=== PATIENT | female | born 1970 | race Caucasian/White ===

== ENCOUNTER 2022-03-27 20:06 | Observation (INO) | payer OTHER, SELFPAY ==
[2022-03-22 18:04] LABS: Hematocrit 28.4 % (37-47); Hemoglobin 8.4 g/dL (12.0-15.0); Mean Corp Hgb Conc 29.6 g/dL (32-36); Mean Corpuscular Hgb 20.7 pg (27.0-32.0); Mean Corpuscular Volume 70.1 fL (81-99); Mean Platelet Vol. 8.9 fl (6.2-12.0); Platelet Count 468 K/mm3 (150-450); RBC Distribution Width CV 16.3 % (11.6-14.6); RBC Distribution Width SD 41.3 fl (35.1-43.9); Red Blood Count 4.05 M/mm3 (4.2-5.4); White Blood Count 6.2 K/mm3 (4.4-11.0)
[2022-03-22 18:11] LABS: Magnesium 2.1 mg/dL (1.6-2.6)
[2022-03-27 19:40] VITALS: BP 177/79; PULSE 97; RESP 18; TEMP 37.2; O2SAT 100
[2022-03-27 19:46] VITALS: BMI 25.9
--- NOTE | 2022-03-27 20:26 | PCM.HP.BLA ---
History and Physical Date of Admission: 03/27/22 Chief complaint: Chronic anemia History present illness: 51-year-old G2, P2 arrives for preoperative blood transfusion. Denies headache, visual changes, chest pain, shortness of breath, nausea vomiting, weakness, dizziness. Obstetrical history: G1: 40-week primary G2: 39-week repeat section Past medical history: None Medications: None Past surgical history: section x2, tubal ligation Social history: Denies smoking, alcohol use, drug use Family history: Denies history DVT or PE Allergies: No known drug allergies Review of systems: Besides above pertinent positives a full review of systems was performed and found to be negative Physical exam: Vital signs: Blood pressure 177/79 pulse 97 respiratory rate 18 temperature 99 Fahrenheit SPO2 100% on room air General: Normal-appearing no acute distress none HEENT: Normocephalic atraumatic no cervical of adenopathy Cardiac/respiratory: No use of accessory muscles, nonlabored breathing Abdomen: Soft, nontender, nondistended Extremities: No peripheral edema normal peripheral pulses Psych: Normal affect normal demeanor nonpressured speech Assessment plan: 44-year-old arrives with chronic anemia asymptomatic but for major surgery tomorrow, plan for hysterectomy. Patient for 1 unit packed red blood cells transfusion, risk benefits alternatives discussed patient states understanding and wished to proceed. All questions were answered and consent was signed. N.p.o. after midnight.
[2022-03-27] MEDS: Lactated Ringers 1,000 ML 100 ML IV (22:05)
[2022-03-27] MEDS: 0.9% Saline Lock 10 ML Syringe IV (22:05)
[2022-03-27 22:33] VITALS: BP 178/70; PULSE 90; RESP 16; TEMP 37.2; O2SAT 98
[2022-03-27 23:08] VITALS: BP 152/64; PULSE 79; RESP 16; TEMP 37.2; O2SAT 99
[2022-03-28] VITALS (12 sets, daily range): BP systolic 136–174; BP diastolic 57–75; PULSE 66–80; RESP 16–24; TEMP 36.7–37.5; O2SAT 98–100; BMI 25.7
--- NOTE | 2022-03-28 | HYST_PTH ---
PATIENT: MARTITA VIZCARRA LOC: [facility] U#:[id number] AGE/SX: 51/F ROOM: [facility] RE03/27/[address]: Dr. Gustavo Hensley MD : 1970 BED: 1 DIS: 03/28/2022 SPEC #: [id number] RECD: 03/28/22 13:26 STATUS: ROSALBA REIrene #: [id number] BRITNI: 03/28/22 00:[address]: Gustavo Hensley DEPT: SURGICAL PATHOLOGY RECD BY: Ky Sy ENTERED: 03/28/22 13:26 SP TYPE: HYSTERECT OTHR DR: No Primary Care Phys Tissues: Uterus, NOS Procedures: Surgery Specimen Level V HEADER OPERATION: ERAS, robotic assist total lap hysterectomy, BSO, cysto PRE-OP DIAGNOSIS: Chronic anemia secondary to menorrhagia TISSUE SUBMITTED: Uterus, cervix, bilateral fallopian tubes MICROSCOPIC DIAGNOSIS Uterus, cervix, bilateral fallopian tubes, hysterectomy and bilateral salpingectomy: Cervix ? mild chronic cystic cervicitis. Endometrium ? secretory endometrium. Myometrium ? intramural leiomyomas (largest measuring 4 cm in greatest dimension). See comment. One fallopian tubes with luminal adenomyosis involving epithelium. Second fallopian tube - no pathologic diagnosis. SJ:rg 03/29/2022 COMMENT Largest leiomyoma shows focal central area of infarction. MICROSCOPIC DESCRIPTION Slides are reviewed. GROSS DESCRIPTION Received in fixative is one container labeled with the patient's name and designated uterus. The specimen consists of a uterus with attached cervix measuring 13 x 10 x 5 cm and weighing 202 gm. The ectocervix is oval in contour. The endocervical canal measures 3.8 cm in length and is grossly unremarkable. The triangular endometrial cavity measures 4.8 x 3 cm. The velvety, reddish-tuttle endometrium measures up to 0.2 cm in thickness. The myometrium measures 2 cm in average thickness and is distorted by multiple spherical rubbery nodules resembling leiomyomas that range in size from 1.2 to 4 cm in greatest dimension. Two fallopian tubes are present free in the containing. One fallopian tube measures 5 cm in length and 0.5 cm in average diameter. The other fallopian tube measures 6 cm in length and 1 cm in average diameter and contains a Filshie-type clip that is intact. [employer] sections are submitted as follows: 1 - anterior cervix, 2 - posterior cervix, 3 & 4 - anterior uterine wall, 5 & 6 - posterior uterine wall, 7 & 8 - largest myometrial mass, 9 - smaller myometrial masses, 10 - fallopian tube without Filshie clip, 11 - fallopian tube with Filshie clip. Note, the largest myometrial mass contains central softening and greenish-tuttle discoloration. / AM:yasmany 03/28/2022 TC:1 CPT: 73802
[2022-03-28 04:42] LABS: Absolute Lymphocyte Count 1.39 X10^3/uL (0.83-4.51); Absolute Neutrophil Count 2.7 X10^3/uL (2.0-7.7); Basophil# 0.03 X10^3/uL; Basophil% 0.6 % (0-1); Eosinophil# 0.07 X10^3/uL; Eosinophils% 1.5 % (0-5); Lymphocyte # 1.39 X10^3/ul (0.83-4.51); Lymphocyte % 29.7 % (19-41); Mean Corpuscular Hgb 22.2 pg (27.0-32.0); Mean Corpuscular Volume 71.4 fL (81-99); Mean Platelet Vol. 8.4 fl (6.2-12.0); Monocyte# 0.45 X10^3/uL; Monocyte% 9.6 % (0-10); NRBC Flagged by Analyzer 0 % (0-5); Neutrophil # 2.74 X10^3/uL (2.7-7.7); Neutrophil % 58.6 % (47-70); Platelet Count 452 K/mm3 (150-450); RBC Distribution Width CV 18.2 % (11.6-14.6); RBC Distribution Width SD 46.2 fl (35.1-43.9); Red Blood Count 4.06 M/mm3 (4.2-5.4); White Blood Count 4.7 K/mm3 (4.4-11.0)
[2022-03-28 04:57] LABS: Prothrombin Time (Protime)PT. 12.6 SECONDS (11.7-14.9)
[2022-03-28] MEDS: Gabapentin 600 MG Tablet PO (08:54)
[2022-03-28] MEDS: Acetaminophen 500 MG Tablet 1000 MG PO ×2 (08:54→17:20)
--- NOTE | 2022-03-28 09:25 | NURSING ---
Pt taken off floor to AC at this time, family to OR waiting room.
--- NOTE | 2022-03-28 09:41 | PCM.PN.OB ---
Subjective Subjective No overnight complaints. Remains asymptomatic. Denies chest pain, shortness of breath, dizziness, weakness Objective Data Objective Data Vital Signs: Vital Signs Temp Pulse Resp BP Pulse Ox O2 Del Method 98.6 F 80 18 165/70 H 99 Room Air 03/28/22 08:49 03/28/22 08:49 03/28/22 08:49 03/28/22 08:49 03/28/22 08:49 03/28/22 08:49 Oxygen Delivery Method Room Air Weight: 131 lb 15.993 oz Body Mass Index (BMI) 25.7 Intake & Output: Intake and Output for Last 24 Hours 03/26/22 03/27/22 03/28/22 23:59 23:59 23:59 Intake Total 80 / 80 502 / 502 Balance 80 502 / 502 Lab / Micro Data Result Diagrams: 03/28/22 04:11 Labs: Laboratory Results - last 24 hr 03/27/22 20:45: Blood Type A POSITIVE, Antibody Screen NEGATIVE, Crossmatch See Detail 03/28/22 04:11: WBC 4.7, RBC 4.06 L, Hgb 9.0 L, Hct 29.0 L, MCV 71.4 L, MCH 22.2 L, MCHC 31.0 L, RDW Std Deviation 46.2 H, RDW Coeff of Liat 18.2 H, Plt Count 452 H, MPV 8.4, Immature Gran % (Auto) 0.000, Neut % (Auto) 58.6, Lymph % (Auto) 29.7, [place] % (Auto) 9.6, Eos % (Auto) 1.5, Baso % (Auto) 0.6, Absolute Neuts (auto) 2.7, Absolute Lymphs (auto) 1.39, Nucleated RBC % 0 03/28/22 04:11: PT 12.6, INR 1.0, APTT 27.0 Physical Exam Const alert, oriented x3, no apparent distress, average body habitus, healthy appearing and well nourished HEENT normocephalic and moist oral mucous membranes Eyes PERRL Neck full ROM Resp normal respiratory effort, no retractions and no use of accessory muscles Extremity normal to inspection, full ROM and no clubbing, cyanosis or edema Neuro moves all extremities and no focal motor deficits Psych mental status grossly normal, affect normal, speech normal and activity/motor behavior normal Assessment & Plan (1) Anemia: PLAN: Patient seen and examined. Status post 1 unit of packed red blood cells. Scheduled for hysterectomy today. 1 unit packed red blood cells finished transfusion at 01:00 03/28/2022. Educated patient on hysterectomy today risk benefits alternatives, patient states understanding and wished to proceed. For surgery today
[2022-03-28] MEDS: Cefazolin 2 GM in 0.9% Normal Saline 100 ML IV (10:46)
--- NOTE | 2022-03-28 12:25 | DCINST_ITS ---
Discharge Instructions Diet Discharge Diet: No restrictions Activity Discharge Activity: Return to Normal Activity, May Drive and May Shower May resume sexual activity in: 4-6 weeks Lifting Restrictions: no lifting over 25lbs for 2 to 3 weeks Follow Up Care Please Follow Up With: Gustavo Hensley MD When: 2 weeks postoperatively Test Results: Test results from this visit will be discussed in further detail at your follow- up appointment, if applicable. Discharge Plan Admission Admit Date/Time: 03/27/22 20:06 Attending Provider: Gustavo Hensley Primary Care Provider: Care Physician,Karlie Primary Discharge Orders/Prescriptions Prescriptions: No Action multivitamin Capsule 1 cap PO DAILY Referrals / Follow Up: Care Physician,No Primary [Primary Care Provider] - Disposition Discharge Orders: Discharge Patient (Routine); Ordered 03/28/22 Ordered By: Dr. Gustavo Hensley
--- NOTE | 2022-03-28 12:26 | OP.PCM_ITS ---
Report of Operation Date of Procedure: 03/28/22 Pre-Operative Diagnosis: Abnormal uterine bleeding, leiomyoma Post-Operative Diagnosis: Abnormal uterine bleeding, leiomyoma Surgery/Procedure Performed:: Robotic assisted total laparoscopic hysterectomy bilateral salpingectomy, cystoscopy Description of Surgical Findings:: Surgeon: Gustavo Hensley MD Anesthesia: General EBL: 75 cc Urine output: 100 cc IV fluids: 1000 cc Complications: None Specimen: Cervix, uterus, bilateral fallopian tubes Findings: Status post Filshie clip tubal ligation. Enlarged uterus, fundal intrauterine body 9 cm fibroid. Otherwise normal uterus, tubes, and ovaries. Post procedure cystoscopy with bilateral ureteral jets and no pathology noted. Colonic, omental anterior abdominal wall adhesions noted and dissected. Moderate amount of vesicouterine adhesions noted. Consent: Patient with abnormal uterine bleeding and leiomyomas elects for robotic assisted total laparoscopic hysterectomy bilateral salpingectomy and cystoscopy. Patient understands the risk of the procedure include but are not limited to visceral or vascular injury, prolonged hospitalization, blood loss and need for transfusion, reoperation. Patient state understanding wish to proceed. All questions were answered and consent was signed. Procedure: Patient was brought back to the OR where general anesthesia found to be adequate. 2 g of Ancef were given for infection prophylaxis. Patient was prepared and draped in a dorsolithotomy position with yellowfin stirrups. Weighted speculum was placed in the posterior aspect of the vagina and cervical dilators were used to dilate the cervix. Uterine manipulator was placed. Varies needle was inserted at the umbilicus, water safety test was passed. Abdomen was insufflated. 8 mm robotic trocar placed supraumbilical midline. La paroscope inserted and above findings were noted. Bilateral lower quadrant 8 mm robotic trochars were inserted under direct visualization. Left upper quadrant 8 mm trocar was inserted under direct visualization. 5 mm right upper quadrant trocar was inserted under direct visualization. Robot was docked. Using a vessel sealer and monopolar scissors the left fallopian tube was identified up to the fimbria and the mesosalpinx was cut and cauterized loping tube was transected and sent to pathology. Left utero-ovarian ligament was cut and cauterized. Left round ligament was cut and cauterized, anterior and posterior portions of the broad ligament were dissected. Bladder flap was developed. Left uterine vessels were skeletonized cut and cauterized lateralized beyond the level to colpotomy cup. In a similar fashion the right fallopian tube was then brought to the fimbria and the mesosalpinx was cut and cauterized, right fallopian tube was transected removed from the abdominal cavity and sent to pathology. Right utero-ovarian ligament was cut and cauterized. Right round ligament was cut and cauterized, anterior and posterior portions of broad ligament were dissected. Bladder flap was fully developed beyond the level to colpotomy cup. Right uterine vessels were skeletonized cut and cauterized, lateralized beyond the level to colpotomy cup. Circumferential colpotomy was made. Uterus was removed from the abdominal cavity and sent to pathology. Good hemostasis was noted. Colpotomy was closed in a continuous running fashion with V-Loc suture. Good hemostasis was noted. Post procedure cystoscopy was performed and above findings were noted. Trochars were removed under direct visualization and good hemostasis was noted. Trocar sites were closed with subcutaneous suture. Good hemostasis was noted. All counts were correct x2. Patient tolerated procedure well and was brought to recovery in stable condition.
[2022-03-28] MEDS: Ondansetron 4 MG/2 ML Vial IV (13:19)
--- NOTE | 2022-03-28 14:32 | PHA.DC.MC ---
Pharmacy Service has performed discharge medication reconciliation and counseling for this patient. The patient was counseled on the following discharge medications and changes in medications for homegoing were reviewed. 1. OXYCODONE The Reason for Use, instructions for use, and potential side effects were reviewed for all new medications. The patient's questions regarding all of their medications were answered. The patient was able to verbally demonstrate an understanding of their discharge medications. Home Medications multivitamin 1 cap PO DAILY 03/18/22 oxycodone 5 mg tablet 5 mg PO Q6H PRN PRN Pain Score 7-10 5 days #20 tabs 03/28/22 The patient's discharge medication list was reviewed for discrepancies and discrepancies were resolved.
== END 2022-03-28 17:45 | disposition home or self-care (01) ==
PROVIDERS: Anesthesiology; Admitting Provider Obstetrics & Gynecology; Visit Provider Obstetrics & Gynecology
PROC: 0UT90ZZ Resection of Uterus, Open Approach (ICD-10-PCS; CPT 58571; principal; 2022-03-28 10:50)
DX: D25.1 Intramural leiomyoma of uterus (principal); N93.9 Abnormal uterine and vaginal bleeding, unspecified; D64.9 Anemia, unspecified; N80.0 Endometriosis of uterus
CPT/HCPCS: 58571; S2900; 00840; 36415; 36430; 83735; 85025; 85027; 85610; 85730; 86850; 86900; 86901; 86920; 86922; 88307; 99218; J7120; P9016; A4216; G0378; J2405; J3475